=== PATIENT | female | born 1975 | race Caucasian/White ===

== ENCOUNTER → 2024-04-07 | Outpatient (CLI) | payer BC ==
[2024-04-07 21:45] LABS: Alternaria alternata IgE <0.10 kU/L; Aspergillus fumagatus IgE <0.10 kU/L; Birch IgE <0.10 kU/L; Cat Epith & Dander IgE <0.10 kU/L; Cladosporian herbarum IgE <0.10 kU/L; Cockroach IgE <0.10 kU/L; Dermato. farinae IgE 0.42 kU/L; Dog Dander IgE <0.10 kU/L; Elm IgE <0.10 kU/L; Maple (Box Elder) IgE <0.10 kU/L; Oak IgE <0.10 kU/L; Red Top (Bentgrass) IgE <0.10 kU/L
[2024-04-07 22:09] LABS: Immunoglobulin E 8.77 IU/mL (0.00-114.00)
== END | disposition home or self-care (01) ==
LOC: LABWHC1 09:24
PROVIDERS: ATTEND Otolaryngology
DX: B44.89 Other forms of aspergillosis (principal); J30.89 Other allergic rhinitis; L50.0 Allergic urticaria
CPT/HCPCS: 36415; 82785; 86003

== ENCOUNTER → 2024-04-14 | Outpatient (CLI) | payer BC ==
--- NOTE | 2024-04-14 08:24 | CT ---
EXAMINATION TYPE: CT sinus wo con DATE OF EXAM: 04/14/2024 COMPARISON: None HISTORY: 48-year-old female J32.0, maxillary sinusitis CT DLP: 605 mGycm Automated exposure control for dose reduction was used. TECHNIQUE: Noncontrast axial views of the paranasal sinuses were obtained. Coronal and sagittal recon structions performed. FINDINGS: PARANASAL SINUSES: Trace mucosal thickening floor of the left maxillary sinus. Complete opacification of the right maxillary sinus with slight reactive milana osteogenesis and slight bulging of the medial right maxillary sinus wall. Mild mucosal thickening right ethmoid air cells. Frontal sinuses are well pneumatized. 8 mm mucosal retention cyst left sphenoid sinus. There is no air-fluid level. There is no destruction of the osseous melara of the paranasal sinuses. THE NASAL CAVITY: There is opacification which extends to the right maxillary infundibulum. Otherwise, the left osteome atal complex is patent. There is slight leftward nasal septal deviation. There is a left-sided nose ring. The imaged brain and orbits are normal in appearance. Mastoid air cells and middle ear cavities are well pneumatized. Reformatted images confirm above findings. IMPRESSION: 1. Complete opacification of the right maxillary sinus. This is long-standing, severe sinus disease g iven the early reactive milana-osteogenesis. Some associated bulging of the medial right maxillary sinus wall. 2. Mild mucosal thickening right ethmoid air cells and floor of the left maxillary sinus. 3. Leftward nasal septal deviation.
== END | disposition home or self-care (01) ==
LOC: RADCTMAIN 07:16
PROVIDERS: ATTEND Otolaryngology
DX: J32.0 Chronic maxillary sinusitis (principal); J34.2 Deviated nasal septum; J34.89 Other specified disorders of nose and nasal sinuses
CPT/HCPCS: 70486

== ENCOUNTER 2024-07-05 09:22 | Day surgery (SDC) | payer BC ==
[~2024-07-05 09:22] MED LIST: LIDOCAINE 1% (10MG/ML) FOR IV START INTRADERMA PRN; MIDAZOLAM 2 MG/2 ML VIAL IV PRN; fentaNYL (PF) 50 MCG/ML 2 ML AMP IVP PRN
[2024-07-05] MEDS: IV FLUID CONTINUATION 1,000 ML IV ONE ×2 (09:53→12:48)
[2024-07-05 09:55] VITALS: TEMP 97.2
[2024-07-05] MEDS: OXYMETAZOLINE 0.05% NASL SPRAY 1 SPRAY BOTTLE EA NOSTRIL PRN (10:00)
[2024-07-05] MEDS: LACTATED RINGERS 1,000 ML IV SCH (10:08)
[2024-07-05] MEDS: DEXAMETHASONE SOD PHOSPHATE 4 MG/ML 1 ML VIAL IV ONE (10:08)
[2024-07-05] MEDS: FAMOTIDINE 20 MG/2 ML VIAL IV PRN (10:08)
[2024-07-05] MEDS: ONDANSETRON 4 MG/2 ML VIAL IVP ONE (10:08)
[2024-07-05 10:09] LABS: Glucose,Whole Blood 84 mg/dL (70-110)
[2024-07-05] MEDS ORDERED: PROPOFOL 10 MG/ML 20 ML VIAL IV ONE (10:22)
[2024-07-05] MEDS ORDERED: MIDAZOLAM 2 MG/2 ML VIAL ONE (10:22)
[2024-07-05] MEDS ORDERED: SUCCINYLCHOLINE CHLORIDE 200 MG/10 ML VIAL IV ONE (10:22)
[2024-07-05] MEDS ORDERED: LIDOCAINE 4% LTA KIT (4 ML) TOPICAL ONE (10:22)
[2024-07-05] MEDS ORDERED: PHENYLEPHRINE-0.9% NACL SYG 1,000 MCG/10 ML SYRINGE ONE (10:22)
[2024-07-05] MEDS ORDERED: LIDOCAINE 1% INJ 10MG/ML (20 ML MDV) ONE (10:22)
[2024-07-05] MEDS ORDERED: fentaNYL (PF) 50 MCG/ML 2 ML AMP ONE (10:22)
[2024-07-05] MEDS: LIDOCAINE 1%-EPI 1:100,000 20 ML VIAL SUBMUCOSAL ONE ×2 (10:40)
[2024-07-05] MEDS: BACITRACIN ZINC 500 UNIT/GM OINT 28.4 GM TUBE TOPICAL ONE (10:49)
--- NOTE | 2024-07-05 11:37 | P.OP ---
Date of Procedure: 07/05/24 Preoperative Diagnosis: deviated nasal septum Inferior turbinate hypertrophy Chronic sinusitis Postoperative Diagnosis: same Procedure(s) Performed: septoplasty Outfracture and submucous resection inferior turbinates Right-sided endoscopic sinus surgery including bilateral maxillary antrostomy with removal of tissue from maxillary sinus and right anterior ethmoidectomy Anesthesia: JIAN Surgeon: Madi Davidson Estimated Blood Loss (ml): 10 Pathology: other (nasal septal bone and cartilage and sinus contents) Condition: stable Disposition: PACU Indications for Procedure: this is a 48-year-old white female whose had difficulties with chronic nasal airway obstruction congestion and right-sided chronic sinusitis based on history and physical and CT of the sinuses Operative Findings: nasal septum deviated to the right anteriorly to the left posteriorly inferior turbinate hypertrophy bilateral moderate, left maxillary ostium obstructed with mucosal thickening throughout the maxillary sinus, right maxillary ostium obstructed but with purulence throughout the maxillary sinus which was cultured and considerable inflammation throughout the maxillary sinus and anterior ethmoid air cells Description of Procedure: The patient was brought into the operative suite and placed in a supine position. The patient underwent induction of general anesthesia with oral endotracheal intubation without difficulty. The patient was prepped and draped in the usual aseptic fashion with the orbits in the operating field for monitoring to the case and the computed tomography scan was on the computer screen for review throughout the case. 1% lidocaine with 1 :100,000 epinephrine was infused submucosally into both sides of the nasal septum as well as the lateral nasal wall and anterior tips of the middle turbinates. While this was taking vasoconstrictive effect the inferior turbinates were infractured with [place] elevator and partial submucous resection of the inferior turbinates was performed with a portion of the submucosal soft tissue and the inferior turbinate bone removed with Coblation device. The inferior turbinates were then outfractured with the [place] elevator. A left hemitransfixion incision was then made with the mucoperichondrial and mucoperiosteal flap on the left elevated. The bony cartilaginous junction was disarticulated and the mucoperiosteal flap on the right was elevated. Bony nasal septal deformities were removed with Nick forceps and an inferior cartilaginous strip was removed leaving a full 1.5 cm caudal strut. Checking intranasally this corrected the nasoseptal deformities and the hemitransfixion incision was closed with a running 4-0 chromic suture. Full 0 endoscopic examination is performed bilaterally. Beginning on the left, the middle turbinate was medialized. The maxillary ostium was located with a ballpoint probe and an infundibulotomy was performed followed by uncinectomy. The maxillary antrostomy was enlarged at the expense of the anterior and posterior fontanelle taking care anteriorly not to injure the lacrimal bone. The maxillary sinus was evaluated with 30 and 70 endoscope .[Abnormal appearing tissue was removed from the maxillary sinus]. . Attention was then turned to the right where the procedures were followed as they had been on the left- a culture was taken from the right maxillary sinus. The right middle turbinate was medialized with the [place] elevator and infundibulotomy and uncinectomy were performed with removal of tissue from the maxillary sinus on the right under 30 endoscopic visualization. Anterior ethmoidectomy was performed on the right also with straight Blakesley forceps and microdebrider.. [Nasopore nasal dressing was placed in the middle meatus bilaterally under direct visualization]-this was placed on the right in order to not obstructing the maxillary ostia. Bilateral Mancini airway splints coated with bacitracin ointment were placed and sutured transseptally with a 4-0 nylon suture. The patient was suctioned in oral gastric fashion and was allowed to emerge from general anesthesia having tolerated procedure well and was extubated in the operating suite and transferred to the postoperative recovery area in sa tisfactory condition.
[2024-07-05] MEDS: HYDROmorphone 0.5 MG/0.5 ML SYRINGE IVP PRN (11:57)
[2024-07-05] MEDS: HYDROcodone/APAP 7.5-325MG 1 EACH TAB PO ONE (13:21)
[2024-07-05 14:00] VITALS: RESP 20
[2024-07-05] MEDS: hydrALAZINE HCL 20 MG/ML 1 ML VIAL IVP STA (14:23)
[2024-07-05 14:58] VITALS: BP 153/98; PULSE 78
== END 2024-07-05 15:00 | disposition home or self-care (01) ==
LOC: OR 09:22
PROVIDERS: ATTEND Otolaryngology
CPT/HCPCS: 87070; 87075; 87205; 88300; 88302; 88305; 88307